=== PATIENT | male | born 1960 | race Caucasian/White ===

== ENCOUNTER 2023-08-25 15:01 | Emergency (ER) | payer OTHER ==
[~2023-08-25] VITALS: Ht 182.9 cm; Wt 108.9 kg
[2023-08-25 15:19] LABS: BASOPHILS 0.5 % (0-2); EOSINOPHILS 1.1 % (0-6); HEMATOCRIT 46.3 % (35.0-50.0); HEMOGLOBIN 15.5 g/dL (12.0-18.0); MCH 29.3 (27-36); MCHC 33.6 g/dl (30-36); MCV 87.2 fl (81-99); MONOCYTES 9.3 % (0-12); NEUTROPHILS 70.1 % (39-80); PLATELET COUNT 189 K/uL (140-440); RBC 5.31 M/ul (4.3-5.7); RDW 13.2 (10.5-15.0)
[2023-08-25 15:35] LABS: ALBUMIN 3.9 g/dL (3.4-5.0); ALBUMIN/GLOBULIN RATIO 1.26 (1.1-2.4); ANION GAP 14.1 (7-21); BILIRUBIN, TOTAL 0.4 ng/dL (0.2-1.0); BUN/CREATININE RATIO 17.44 (6.0-28.6); CALCIUM 8.9 mg/dL (8.5-10.1); CREATININE, SERUM 0.86 mg/dL (0.70-1.30); POTASSIUM 4.1 mmol/L (3.5-5.1)
[2023-08-25 16:54] VITALS: BP 166/91
[2023-08-25] MEDS ORDERED: LISINOPRIL-HCT1 EAC1 PO (16:54)
== END 2023-08-25 16:56 | disposition home or self-care (01) ==
LOC: ED 15:01
PROVIDERS: Emergency Medicine
DX: S20.212A Contusion of left front wall of thorax, initial encounter (principal); V89.2XXA Person injured in unspecified motor-vehicle accident, traffic, initial encounter; Z88.0 Allergy status to penicillin
CPT/HCPCS: 36415; 71045; 72040; 80053; 85025; 96374; 99284-25; A9270; J1885